=== PATIENT | male | born 1980 | race Hispanic/Latino ===

== ENCOUNTER 2017-11-12 09:03 | Emergency (ER) | payer OTHER ==
--- NOTE | 2017-11-12 10:36 | RAD ---
LEFT ELBOW 4 VIEWS: Date: 11/12/17 HISTORY: Injury to left elbow. Pain in left elbow. FINDINGS: There is evidence of joint effusion anteriorly. No definite fracture identified. The presence of join t effusion raises the possibility of an occult fracture. Recommend immobilization and short-term foll ow-up films of left elbow within 7-14 days. IMPRESSION: No definite fracature confirmed; however, the presence of joint effusion raises the possibility of oc cult fracture. Follow-up recommended as above. POS: JOHAN
== END 2017-11-12 10:48 | disposition home or self-care (01) ==
LOC: NAV ERS 09:03 → NAV OCC 09:03 → EDSTATUS 09:25 → NAV ERS 10:48
DX: M25.522 Pain in left elbow (principal); W19.XXXA Unspecified fall, initial encounter
CPT/HCPCS: 29105

== ENCOUNTER 2018-05-15 09:01 | Outpatient (CLI) | payer OTHER ==
--- NOTE | 2018-05-15 12:50 | ULT ---
GALLBLADDER ULTRASOUND: HISTORY: Right upper quadrant pain x 4 months. COMPARISON: None. TECHNIQUE: Utilizing a multihertz transducer, sonographic imaging of the right upper quadrant is performed in th e longitudinal and transverse plane. FINDINGS: Visualized hepatic parenchyma has a normal echotexture. No hepatic masses or intrahepatic biliary di latation. Contour of the hepatic margin maintained. The head of the pancreas has an overall normal echotexture. Note, the amount of pancreatic parenchym a appreciated is minimal suggesting a component of atrophy. No evidence of hydronephrosis with regards to the right kidney. The maximum dimension is 11.2 cm. The common duct measures 0.6 cm. No sonographic cholelithiasis, gallbladder wall thickening, or pericholecystic fluid. Negative Senait y's sign. IMPRESSION: No sonographic cholelithiasis or cholecystitis. POS: JOHAN
== END 2018-05-15 09:02 | disposition home or self-care (01) ==
LOC: NAV ULT 09:01
PROVIDERS: ATTEND Nurse Practitioner Family
DX: R10.11 Right upper quadrant pain (principal)
CPT/HCPCS: 76705